=== PATIENT | male | born 1995 | race Caucasian/White ===

== ENCOUNTER 2018-10-17 13:30 | Emergency (ER) | payer BC, OTHER ==
--- NOTE | 2018-10-17 13:36 | EDM.PDOC ---
ED HPI GENERAL MEDICAL PROBLEM - General Chief Complaint: ENT Problem Stated Complaint: SORE THROAT Time Seen by Provider: 10/17/18 14:01 Source of Information: Reports: Patient, Family History Limitations: Reports: No Limitations - History of Present Illness INITIAL COMMENTS - FREE TEXT/NARRATIVE: HISTORY AND PHYSICAL: []23-year-old male presenting with sore throat History of Present Illness: []He has been sick for 3 days Review of Systems: As per history of present illness and below otherwise all systems reviewed and negative. Past medical history: As per history of present illness and as reviewed below otherwise noncontributory. Surgical history: As per history of present illness and as reviewed below otherwise noncontributory. Social history: No reported history of drug or alcohol abuse. Family history: As per history of present illness and as reviewed below otherwise noncontributory. Physical exam: Alert young man who looks quite miserable circles under his eyes he is normocephalic and questions appropriately difficulty swallowing. HEENT: Atraumatic, normocehpalic, pupils reactive, negative for conjunctival pallor or scleral icterus, mucous membranes moist, throat clear, neck supple, nontender, trachea midline. If he red erythematous throat Lungs: Clear to auscultation, breath sounds equal bilaterally, chest non tender. Heart: S1S2, regular, negative for clicks, rubs, or JVD. Abdomen: Soft, nondistended, nontender. Negative for masses or hepatossplenmegaly. Negative for costovertebral tenderness. Pelvis: Stable nontender. Genitourinary: Deferred. Rectal: Deferred Extremities: Atraumatic, negative for cords or calf pain. Neurovascular unremarkable. Neuro: Awake, alert, oriented. Cranial nerves II through XII unremarkable. Cerebellum unremarkable. Motor and sensory unremarkable throughout. Exam nonfocal. Diagnostics: []Rapid strep influenza Therapeutics: [] Impression: []Strep throat Plan: []Discharge Zithromax Follow-up with your primary care Return as needed to the emergency department Definitive disposition and diagnosis as appropriate pending reevaluation and review of above. Onset: Gradual Duration: Day(s): throat Pain Score (Numeric/FACES): 6 - Related Data Allergies Allergy/AdvReac Type Severity Reaction Status Date / Time amoxicillin Allergy Hives Verified 10/17/18 13:52 Home Meds: Home Meds Azithromycin [Zithromax] 250 mg PO DAILY #6 tab 10/17/18 [Rx] ED ROS ENT - Review of Systems Review Of Systems: ROS reveals no pertinent complaints other than HPI. ED EXAM, ENT - Physical Exam Exam: See Below (see dictation) Course - Vital Signs Last Recorded V/S: Last Vital Signs Temp 36.8 C 10/17/18 13:52 Pulse 91 10/17/18 13:52 Resp 18 10/17/18 13:52 BP 114/65 10/17/18 13:52 Pulse Ox 96 10/17/18 13:52 Departure - Departure Time of Disposition: 14:19 Disposition: Home, Self-Care 01 Condition: Good Clinical Impression: Streptococcal pharyngitis, Tonsillitis - Discharge Information *PRESCRIPTION DRUG MONITORING PROGRAM REVIEWED*: Not Applicable *COPY OF PRESCRIPTION DRUG MONITORING REPORT IN PATIENT STEVEN: Not Applicable Prescriptions: Azithromycin [Zithromax] 250 mg PO DAILY #6 tab Instructions: Strep Throat, [id number] Referrals: PCP,Not In Area [Primary Care Provider] - Forms: ED Department Discharge Additional Instructions: The following information is given to patients seen in the emergency department who are being discharged to home. This information is to outline your options for follow-up care. We provide all patients seen in our emergency department with a follow-up referral. The need for follow-up, as well as the timing and circumstances, are variable depending upon the specifics of your emergency department visit. If you don't have a primary care physician on staff, we will provide you with a referral. We always advise you to contact your personal physician following an emergency department visit to inform them of the circumstance of the visit and for follow-up with them and/or the need for any referrals to a consulting specialist. The emergency department will also refer you to a specialist when appropriate. This referral assures that you have the opportunity for followup care with a specialist. All of these measure are taken in an effort to provide you with optimal care, which includes your followup. Under all circumstances we always encourage you to contact your private physician who remains a resource for coordinating your care. When calling for followup care, please make the office aware that this follow-up is from your recent emergency room visit. If for any reason you are refused follow-up, please contact the [facility] emergency department at and asked to speak to the emergency department charge nurse. Discharge Zithromax Follow-up with your primary care Return as needed to the emergency department Definitive disposition and diagnosis as appropriate pending reevaluation and review of above.
== END 2018-10-17 14:30 | disposition home or self-care (01) ==
LOC: MW.ED 13:30
DX: J03.90 Acute tonsillitis, unspecified (principal); Z88.1 Allergy status to other antibiotic agents; F17.210 Nicotine dependence, cigarettes, uncomplicated
CPT/HCPCS: 87804; 87880-QW; 99283

== ENCOUNTER 2021-12-31 10:13 | Emergency (ER) | payer OTHER, BC ==
[2021-12-31] MEDS ORDERED: Diphtheria,Pertussis(Acell),Tetanus Vaccine 0.5 ML Syringe IM ONE (10:22)
[2021-12-31] MEDS ORDERED: Octyl 2-Cyanoacrylate 1 Tube TOP ONE (12:23)
== END 2021-12-31 12:54 | disposition home or self-care (01) ==
LOC: MW.ED 10:13
DX: S01.312A Laceration without foreign body of left ear, initial encounter (principal); Z23 Encounter for immunization; Z88.0 Allergy status to penicillin; W22.09XA Striking against other stationary object, initial encounter
CPT/HCPCS: 12011; 70450; 90471; 90715; 99283; A9270; 12001; 99284